=== PATIENT | male | born 1945 | race Caucasian/White ===

== ENCOUNTER 2022-01-09 11:17 | Inpatient (IN) ==
[2022-01-09] MEDS ORDERED: cefTRIAXone 1,000 MG in SODIUM CHLORIDE 0.9% 100 ML IV STA (12:08)
[2022-01-09] MEDS ORDERED: SODIUM CHLORIDE 0.9% 1,000 ML IV STA (12:08)
[2022-01-09] MEDS ORDERED: metroNIDAZOLE INJ 500 MG/100 ML PREMIX IV STA (12:08)
[2022-01-09 13:49] LABS: Basophils % 0.3 % (0.0-0.8); Hematocrit 48.8 VOL% (42.0-52.0); Hemoglobin 16.3 GM/DL (14.0-18.0); Immature Granulocytes % 0.4 %; Immature Granulocytes Absolute 0.06 #; Lymphocytes % 6.7 % (21.2-54.2); Mean Corpuscular HGB Conc 33.4 GM/DL (32-36); Mean Corpuscular Volume 93.8 FL (87-102); Mean Platelet Volume 9.4 FL (9.6-12.0); Monocytes # 1.1 10*3/uL (0.11-0.8); Monocytes % 7.8 % (1.7-12.7); Neutrophils % 84.8 % (38.7-73.9); Platelet Count 176 T/CUMM (130-400); Red Cell Distribution Width 13.4 % (9.3-17.3); White Blood Count 14.3 T/CUMM (4-12)
[2022-01-09 14:09] LABS: Albumin 3.1 G/DL (3.4-5.0); Bilirubin,Total 1.7 MG/DL (0.20-1.00); Calcium 9.1 MG/DL (8.5-10.1); Osmolality,Calculated 272.2 MOS/KG (273-304); Potassium 4.1 MMOL/L (3.5-5.1); Total Protein 7.3 G/DL (6.4-8.2)
[2022-01-09 15:32] LABS: Bilirubin,Urine Moderate mg/dL (Negative); Blood, Urine Trace mg/dL (Negative); Glucose,Urine (UA) Negative (Negative); Ketones,Urine 15 mg/dL (Negative); Nitrite,Urine Positive (Negative); Protein,Urine 100 mg/dL (Negative); Urine Appearance Clear (Clear); Urine Color Dark Yellow (Yellow); Urine Specific Gravity 1.025 (1.001-1.035); Urine pH 5.5 (4.5-8.0)
[2022-01-09 15:35] LABS: Bacteria,Urine Occasional /HPF (Few); Hyaline Casts,Urine 13 /LPF (0-3); Mucus,Urine Few /LPF (Occasional); Squamous Epithelial Cell,Urine Occasional /HPF (0-10)
[2022-01-09] MEDS ORDERED: ONDANSETRON 4 MG/2 ML VIAL IV PRN (15:36)
[2022-01-09] MEDS ORDERED: GLUCAGON 1 MG VIAL IM PRN (15:36)
[2022-01-09] MEDS ORDERED: guaiFENesin/DM ER 600-30 MG TABLET PO PRN (15:36)
[2022-01-09] MEDS ORDERED: MAGNESIUM SULF RIDER 4 GM/100 ML PREMIX IV PRN (15:38)
[2022-01-09] MEDS ORDERED: MAGNESIUM SULF RIDER 2 GM/50 ML PREMIX IV PRN (15:38)
[2022-01-09] MEDS ORDERED: DEXTROSE 10% 250 ML BAG IV PRN (15:52)
[2022-01-09] MEDS ORDERED: HYDROmorphone 1 MG/1 ML SYRINGE IV PRN (15:57)
[2022-01-09] MEDS: SODIUM CHLORIDE 0.9% 1,000 ML IV SCH (16:00)
[2022-01-09] MEDS: ENOXAPARIN 40 MG/0.4 ML SYRINGE SUBCUT SCH (16:57)
[2022-01-09] MEDS: PIPERACILLIN/TAZOBACTAM 3,375 MG in SODIUM CHLORIDE 0.9% 100 ML IV SCH ×2 (16:58→23:25)
[2022-01-09] MEDS: ACETAMINOPHEN 325 MG TABLET PO PRN (20:58)
[2022-01-10] MEDS: SODIUM CHLORIDE 0.9% 1,000 ML IV SCH ×3 (02:05→17:51)
[2022-01-10] MEDS: ACETAMINOPHEN 325 MG TABLET PO PRN ×3 (03:24→18:46)
[2022-01-10 06:06] LABS: Basophils % 0.3 % (0.0-0.8); Hematocrit 47.6 VOL% (42.0-52.0); Hemoglobin 15.8 GM/DL (14.0-18.0); Immature Granulocytes % 0.5 %; Immature Granulocytes Absolute 0.06 #; Lymphocytes % 8.9 % (21.2-54.2); Mean Corpuscular HGB Conc 33.2 GM/DL (32-36); Mean Corpuscular Volume 94.8 FL (87-102); Mean Platelet Volume 9.9 FL (9.6-12.0); Monocytes % 8.3 % (1.7-12.7); Platelet Count 163 T/CUMM (130-400); Red Blood Count 5.02 MC/CUMM (3.8-5.5); Red Cell Distribution Width 13.6 % (9.3-17.3); White Blood Count 11.4 T/CUMM (4-12)
[2022-01-10 06:36] LABS: Albumin 2.8 G/DL (3.4-5.0); Bilirubin,Total 1.3 MG/DL (0.20-1.00); Calcium 8.7 MG/DL (8.5-10.1); Osmolality,Calculated 275.8 MOS/KG (273-304); Potassium 3.8 MMOL/L (3.5-5.1); Total Protein 6.8 G/DL (6.4-8.2)
[2022-01-10] MEDS: PIPERACILLIN/TAZOBACTAM 3,375 MG in SODIUM CHLORIDE 0.9% 100 ML IV SCH ×2 (09:52→16:55)
[2022-01-10] MEDS: ENOXAPARIN 40 MG/0.4 ML SYRINGE SUBCUT SCH (16:56)
[2022-01-11] MEDS: PIPERACILLIN/TAZOBACTAM 3,375 MG in SODIUM CHLORIDE 0.9% 100 ML IV SCH ×3 (00:50→17:19)
[2022-01-11] MEDS: SODIUM CHLORIDE 0.9% 1,000 ML IV SCH ×3 (00:50→23:32)
[2022-01-11] MEDS: ACETAMINOPHEN 325 MG TABLET PO PRN ×2 (04:10→09:20)
[2022-01-11 06:09] LABS: Basophils % 0.2 % (0.0-0.8); Hemoglobin 15.4 GM/DL (14.0-18.0); Immature Granulocytes % 0.6 %; Immature Granulocytes Absolute 0.06 #; Lymphocytes # 0.9 10*3/uL (1.4-4.0); Lymphocytes % 9.7 % (21.2-54.2); Mean Corpuscular HGB Conc 33.5 GM/DL (32-36); Mean Corpuscular Volume 93.7 FL (87-102); Mean Platelet Volume 9.7 FL (9.6-12.0); Monocytes # 0.6 10*3/uL (0.11-0.8); Neutrophils % 83.5 % (38.7-73.9); Platelet Count 156 T/CUMM (130-400); Red Blood Count 4.91 MC/CUMM (3.8-5.5); Red Cell Distribution Width 13.4 % (9.3-17.3); White Blood Count 9.4 T/CUMM (4-12)
[2022-01-11 06:16] LABS: Albumin 2.5 G/DL (3.4-5.0); Bilirubin,Total 0.8 MG/DL (0.20-1.00); Calcium 8.6 MG/DL (8.5-10.1); Osmolality,Calculated 277.7 MOS/KG (273-304); Potassium 3.5 MMOL/L (3.5-5.1); Total Protein 6.4 G/DL (6.4-8.2)
[2022-01-11] MEDS: ENOXAPARIN 40 MG/0.4 ML SYRINGE SUBCUT SCH (17:20)
[2022-01-11] MEDS ORDERED: IBUPROFEN 600 MG TABLET PO PRN (20:07)
[2022-01-11] MEDS: LACTATED RINGERS 1,000 ML IV SCH (23:31)
[2022-01-12] MEDS: PIPERACILLIN/TAZOBACTAM 3,375 MG in SODIUM CHLORIDE 0.9% 100 ML IV SCH ×3 (00:03→18:45)
[2022-01-12 05:38] LABS: Basophils % 0.2 % (0.0-0.8); Hematocrit 47.6 VOL% (42.0-52.0); Hemoglobin 15.9 GM/DL (14.0-18.0); Immature Granulocytes % 0.6 %; Immature Granulocytes Absolute 0.06 #; Lymphocytes # 0.7 10*3/uL (1.4-4.0); Lymphocytes % 6.6 % (21.2-54.2); Mean Corpuscular HGB Conc 33.4 GM/DL (32-36); Mean Corpuscular Volume 94.3 FL (87-102); Mean Platelet Volume 9.7 FL (9.6-12.0); Monocytes # 0.4 10*3/uL (0.11-0.8); Monocytes % 3.3 % (1.7-12.7); Neutrophils % 89.3 % (38.7-73.9); Platelet Count 144 T/CUMM (130-400); Red Blood Count 5.05 MC/CUMM (3.8-5.5); Red Cell Distribution Width 13.7 % (9.3-17.3); White Blood Count 10.5 T/CUMM (4-12)
[2022-01-12 06:12] LABS: Calcium 9.1 MG/DL (8.5-10.1); Osmolality,Calculated 279.7 MOS/KG (273-304); Potassium 3.6 MMOL/L (3.5-5.1)
[2022-01-12] MEDS ORDERED: HYDROCORTISONE 2.5% RECTAL CREAM 30 GM TUBE TOP PRN (08:52)
[2022-01-12] MEDS: ACETAMINOPHEN 325 MG TABLET PO PRN (11:52)
[2022-01-12] MEDS ORDERED: FUROSEMIDE 40 MG/4 ML VIAL IV ONE (12:12)
[2022-01-12 12:19] LABS: Arterial Base Excess iSTAT -3 MMOL/L (-2.5-2.5); Arterial Bicarbonate iSTAT 19.2 MMOL/L (20-26); Arterial O2 Saturation iSTAT 92 % (95-100); Arterial PCO2 iSTAT 27 MM HG (35-48); Arterial PO2 iSTAT 58 MM HG (80-95); Arterial Total CO2 iSTAT 20 MMO/L (23-27); Arterial pH iSTAT 7.456 (7.35-7.45)
[2022-01-12] MEDS ORDERED: DILTIAZEM 25 MG/5 ML VIAL IV ONE ×3 (12:19→13:00)
[2022-01-12 12:38] LABS: Calcium 8.7 MG/DL (8.5-10.1); Osmolality,Calculated 277.8 MOS/KG (273-304); Potassium 3.6 MMOL/L (3.5-5.1)
[2022-01-12] MEDS ORDERED: DIGOXIN 0.5 MG/2 ML AMP IV ONE ×2 (12:38→13:30)
[2022-01-12] MEDS: LACTATED RINGERS 1,000 ML IV SCH ×2 (14:32→15:00)
[2022-01-12] MEDS: DILTIAZEM INJ 100 MG in SODIUM CHLORIDE 0.9% 100 ML IV SCH (14:33)
[2022-01-12] MEDS: ENOXAPARIN 100 MG/ML SYRINGE SUBCUT SCH (17:00)
[2022-01-12] MEDS: AZITHROMYCIN INJ 500 MG in SODIUM CHLORIDE 0.9% 250 ML IV SCH (19:08)
[2022-01-12] MEDS: ACETYLCYSTEINE 600 MG CAPSULE PO SCH (21:00)
[2022-01-13] MEDS: PIPERACILLIN/TAZOBACTAM 3,375 MG in SODIUM CHLORIDE 0.9% 100 ML IV SCH ×3 (03:25→19:21)
[2022-01-13] MEDS: ACETAMINOPHEN 325 MG TABLET PO PRN (03:36)
[2022-01-13 04:21] LABS: Arterial Base Excess iSTAT -3 MMOL/L (-2.5-2.5); Arterial Bicarbonate iSTAT 20.4 MMOL/L (20-26); Arterial O2 Saturation iSTAT 93 % (95-100); Arterial PCO2 iSTAT 30 MM HG (35-48); Arterial PO2 iSTAT 64 MM HG (80-95); Arterial Total CO2 iSTAT 21 MMO/L (23-27); Arterial pH iSTAT 7.444 (7.35-7.45)
[2022-01-13 04:22] LABS: Basophils % 0.4 % (0.0-0.8); Hematocrit 43.7 VOL% (42.0-52.0); Hemoglobin 14.7 GM/DL (14.0-18.0); Immature Granulocytes % 0.6 %; Immature Granulocytes Absolute 0.05 #; Lymphocytes # 0.6 10*3/uL (1.4-4.0); Lymphocytes % 7.1 % (21.2-54.2); Mean Corpuscular HGB Conc 33.6 GM/DL (32-36); Mean Corpuscular Volume 92.6 FL (87-102); Mean Platelet Volume 9.8 FL (9.6-12.0); Monocytes # 0.3 10*3/uL (0.11-0.8); Neutrophils % 87.9 % (38.7-73.9); Platelet Count 169 T/CUMM (130-400); Red Blood Count 4.72 MC/CUMM (3.8-5.5); Red Cell Distribution Width 13.6 % (9.3-17.3); White Blood Count 8.3 T/CUMM (4-12)
[2022-01-13 04:44] LABS: Albumin 2.2 G/DL (3.4-5.0); Bilirubin,Total 0.6 MG/DL (0.20-1.00); Calcium 8.1 MG/DL (8.5-10.1); Potassium 3.4 MMOL/L (3.5-5.1); Total Protein 5.1 G/DL (6.4-8.2)
[2022-01-13] MEDS: DILTIAZEM INJ 100 MG in SODIUM CHLORIDE 0.9% 100 ML IV SCH ×3 (04:57→20:38)
[2022-01-13] MEDS: LACTATED RINGERS 1,000 ML IV SCH ×2 (06:19→15:22)
[2022-01-13] MEDS ORDERED: POTASSIUM CHLORIDE 20 MEQ TABLET PO ONE (07:14)
[2022-01-13] MEDS ORDERED: METOPROLOL SUCCINATE XL 25 MG TABLET PO SCH (09:00)
[2022-01-13] MEDS: ACETYLCYSTEINE 600 MG CAPSULE PO SCH ×2 (09:29→20:34)
[2022-01-13] MEDS: DILTIAZEM CD 240 MG CAPSULE PO SCH (09:30)
[2022-01-13] MEDS: DIGOXIN 0.5 MG/2 ML AMP IV SCH (09:30)
[2022-01-13] MEDS ORDERED: FUROSEMIDE 40 MG/4 ML VIAL IV ONE (10:49)
[2022-01-13] MEDS: POLYETHYLENE GLYCOL POWDER 17 GM PACK PO PRN (12:30)
[2022-01-13] MEDS: ENOXAPARIN 100 MG/ML SYRINGE SUBCUT SCH (19:19)
[2022-01-13] MEDS: DEXAMETHASONE 4 MG/1 ML VIAL IV SCH (19:20)
[2022-01-13] MEDS: AZITHROMYCIN INJ 500 MG in SODIUM CHLORIDE 0.9% 250 ML IV SCH (19:20)
[2022-01-14 04:54] LABS: Basophils % 0.1 % (0.0-0.8); Hematocrit 42.7 VOL% (42.0-52.0); Hemoglobin 14.3 GM/DL (14.0-18.0); Immature Granulocytes % 1.1 %; Immature Granulocytes Absolute 0.09 #; Lymphocytes # 0.5 10*3/uL (1.4-4.0); Lymphocytes % 6.6 % (21.2-54.2); Mean Corpuscular HGB Conc 33.5 GM/DL (32-36); Mean Corpuscular Volume 93.2 FL (87-102); Mean Platelet Volume 10.3 FL (9.6-12.0); Monocytes # 0.2 10*3/uL (0.11-0.8); Monocytes % 2.9 % (1.7-12.7); Neutrophils % 89.3 % (38.7-73.9); Platelet Count 196 T/CUMM (130-400); Red Blood Count 4.58 MC/CUMM (3.8-5.5); Red Cell Distribution Width 13.7 % (9.3-17.3)
[2022-01-14 05:10] LABS: Calcium 8.6 MG/DL (8.5-10.1); Osmolality,Calculated 275.1 MOS/KG (273-304); Potassium 3.5 MMOL/L (3.5-5.1)
[2022-01-14] MEDS: PIPERACILLIN/TAZOBACTAM 3,375 MG in SODIUM CHLORIDE 0.9% 100 ML IV SCH ×3 (05:38→18:17)
[2022-01-14] MEDS: DILTIAZEM INJ 100 MG in SODIUM CHLORIDE 0.9% 100 ML IV SCH ×2 (06:29→12:59)
[2022-01-14] MEDS: ACETYLCYSTEINE 600 MG CAPSULE PO SCH ×2 (08:38→22:03)
[2022-01-14] MEDS: DILTIAZEM CD 240 MG CAPSULE PO SCH (08:38)
[2022-01-14] MEDS: DEXAMETHASONE 4 MG/1 ML VIAL IV SCH (08:42)
[2022-01-14] MEDS: DIGOXIN 0.5 MG/2 ML AMP IV SCH (08:42)
[2022-01-14] MEDS ORDERED: FUROSEMIDE 40 MG/4 ML VIAL IV ONE (09:00)
[2022-01-14] MEDS ORDERED: METOPROLOL SUCCINATE XL 50 MG TABLET PO SCH (09:00)
[2022-01-14] MEDS ORDERED: IBUPROFEN 200 MG TABLET PO PRN (17:11)
[2022-01-14] MEDS: ENOXAPARIN 100 MG/ML SYRINGE SUBCUT SCH (18:16)
[2022-01-14] MEDS: AZITHROMYCIN INJ 500 MG in SODIUM CHLORIDE 0.9% 250 ML IV SCH (18:21)
[2022-01-14] MEDS: ZIPRASIDONE 20 MG/1 ML VIAL IM PRN ×2 (18:39→23:20)
[2022-01-14] MEDS ORDERED: IBUPROFEN 400 MG TABLET PO PRN (19:00)
[2022-01-14] MEDS: METOPROLOL SUCCINATE XL 25 MG TABLET PO SCH (22:04)
[2022-01-15] MEDS ORDERED: OLANZapine 10 MG VIAL IM ONE (03:02)
[2022-01-15] MEDS: NICOTINE 21 MG/24 HR PATCH TRANSDERM PRN ×2 (03:40→20:41)
[2022-01-15] MEDS: PIPERACILLIN/TAZOBACTAM 3,375 MG in SODIUM CHLORIDE 0.9% 100 ML IV SCH ×3 (03:48→18:30)
[2022-01-15 05:02] LABS: Basophils % 0.1 % (0.0-0.8); Hematocrit 46.2 VOL% (42.0-52.0); Hemoglobin 15.7 GM/DL (14.0-18.0); Immature Granulocytes % 0.8 %; Immature Granulocytes Absolute 0.12 #; Lymphocytes # 0.8 10*3/uL (1.4-4.0); Lymphocytes % 5.5 % (21.2-54.2); Mean Corpuscular Volume 91.8 FL (87-102); Mean Platelet Volume 9.8 FL (9.6-12.0); Monocytes # 0.6 10*3/uL (0.11-0.8); Monocytes % 4.1 % (1.7-12.7); Neutrophils % 89.5 % (38.7-73.9); Platelet Count 293 T/CUMM (130-400); Red Blood Count 5.03 MC/CUMM (3.8-5.5); Red Cell Distribution Width 13.5 % (9.3-17.3); White Blood Count 14.3 T/CUMM (4-12)
[2022-01-15 05:16] LABS: Calcium 9.3 MG/DL (8.5-10.1); Osmolality,Calculated 284.8 MOS/KG (273-304); Potassium 3.1 MMOL/L (3.5-5.1)
[2022-01-15] MEDS: POTASSIUM CHLORIDE 20 MEQ TABLET PO SCH ×4 (07:26→20:42)
[2022-01-15] MEDS: ZIPRASIDONE 20 MG/1 ML VIAL IM PRN ×3 (07:27→16:49)
[2022-01-15] MEDS: DIGOXIN 0.5 MG/2 ML AMP IV SCH (08:03)
[2022-01-15] MEDS ORDERED: FUROSEMIDE 40 MG/4 ML VIAL IV ONE (09:00)
[2022-01-15] MEDS ORDERED: DEXAMETHASONE 4 MG/1 ML VIAL IV SCH (09:00)
[2022-01-15] MEDS: ACETYLCYSTEINE 600 MG CAPSULE PO SCH ×2 (09:03→20:43)
[2022-01-15] MEDS: METOPROLOL SUCCINATE XL 25 MG TABLET PO SCH ×2 (09:03→20:43)
[2022-01-15] MEDS: DILTIAZEM CD 240 MG CAPSULE PO SCH (09:03)
[2022-01-15] MEDS: QUEtiapine 100 MG TABLET PO SCH ×2 (09:46→20:46)
[2022-01-15] MEDS: DILTIAZEM INJ 100 MG in SODIUM CHLORIDE 0.9% 100 ML IV SCH ×2 (11:20→23:55)
[2022-01-15] MEDS ORDERED: DILTIAZEM 25 MG/5 ML VIAL IV ONE (11:30)
[2022-01-15] MEDS: ENOXAPARIN 100 MG/ML SYRINGE SUBCUT SCH (16:50)
[2022-01-15] MEDS: AZITHROMYCIN INJ 500 MG in SODIUM CHLORIDE 0.9% 250 ML IV SCH (17:05)
[2022-01-15] MEDS: POLYETHYLENE GLYCOL POWDER 17 GM PACK PO PRN (20:41)
[2022-01-16] MEDS: PIPERACILLIN/TAZOBACTAM 3,375 MG in SODIUM CHLORIDE 0.9% 100 ML IV SCH ×3 (01:25→18:24)
[2022-01-16] MEDS ORDERED: HALOPERIDOL 5 MG/ML AMP IM ONE (02:29)
[2022-01-16 03:54] LABS: Basophils % 0.1 % (0.0-0.8); Hemoglobin 14.5 GM/DL (14.0-18.0); Immature Granulocytes % 0.8 %; Lymphocytes # 0.5 10*3/uL (1.4-4.0); Lymphocytes % 4.3 % (21.2-54.2); Mean Corpuscular HGB Conc 33.7 GM/DL (32-36); Mean Corpuscular Volume 92.7 FL (87-102); Mean Platelet Volume 9.6 FL (9.6-12.0); Monocytes # 0.5 10*3/uL (0.11-0.8); Monocytes % 4.4 % (1.7-12.7); Neutrophils % 90.4 % (38.7-73.9); Platelet Count 335 T/CUMM (130-400); Red Blood Count 4.64 MC/CUMM (3.8-5.5); Red Cell Distribution Width 13.7 % (9.3-17.3); White Blood Count 12.3 T/CUMM (4-12)
[2022-01-16 04:15] LABS: Calcium 8.9 MG/DL (8.5-10.1); Osmolality,Calculated 300.6 MOS/KG (273-304); Potassium 3.3 MMOL/L (3.5-5.1)
[2022-01-16 04:18] LABS: Band Neutrophils 1 % (0-10); Lymphocytes 4 % (20-55); Total Cells Counted 100
[2022-01-16] MEDS ORDERED: DEXTROSE 5% 1,000 ML IV SCH (08:30)
[2022-01-16] MEDS ORDERED: DILTIAZEM CD 300 MG CAPSULE PO SCH (09:00)
[2022-01-16] MEDS: ACETYLCYSTEINE 600 MG CAPSULE PO SCH ×2 (09:07→20:21)
[2022-01-16] MEDS: DIGOXIN 0.5 MG/2 ML AMP IV SCH (09:07)
[2022-01-16] MEDS: METOPROLOL SUCCINATE XL 25 MG TABLET PO SCH ×2 (09:08→20:20)
[2022-01-16] MEDS: QUEtiapine 100 MG TABLET PO SCH ×2 (09:08→20:21)
[2022-01-16] MEDS: chlordiazePOXIDE 10 MG CAPSULE PO SCH ×3 (09:08→20:20)
[2022-01-16] MEDS ORDERED: DILTIAZEM INJ 100 MG in SODIUM CHLORIDE 0.9% 100 ML IV PRN (10:49)
[2022-01-16] MEDS: ZIPRASIDONE 20 MG/1 ML VIAL IM PRN (12:10)
[2022-01-16] MEDS: ENOXAPARIN 100 MG/ML SYRINGE SUBCUT SCH (16:44)
[2022-01-16] MEDS: AZITHROMYCIN INJ 500 MG in SODIUM CHLORIDE 0.9% 250 ML IV SCH (17:30)
[2022-01-16] MEDS: ASCORBIC ACID 500 MG TABLET PO SCH (20:20)
[2022-01-16] MEDS: NICOTINE 21 MG/24 HR PATCH TRANSDERM PRN (20:22)
[2022-01-17] MEDS: PIPERACILLIN/TAZOBACTAM 3,375 MG in SODIUM CHLORIDE 0.9% 100 ML IV SCH ×3 (02:25→18:00)
[2022-01-17 04:35] LABS: Basophils % 0.1 % (0.0-0.8); Eosinophils % 0.4 % (0.00-10.9); Hematocrit 46.5 VOL% (42.0-52.0); Hemoglobin 15.2 GM/DL (14.0-18.0); Immature Granulocytes % 0.6 %; Immature Granulocytes Absolute 0.05 #; Lymphocytes # 1.1 10*3/uL (1.4-4.0); Mean Corpuscular HGB Conc 32.7 GM/DL (32-36); Mean Corpuscular Volume 94.9 FL (87-102); Mean Platelet Volume 10.4 FL (9.6-12.0); Monocytes # 0.6 10*3/uL (0.11-0.8); Monocytes % 7.4 % (1.7-12.7); Neutrophils % 78.5 % (38.7-73.9); Platelet Count 275 T/CUMM (130-400); Red Cell Distribution Width 13.8 % (9.3-17.3); White Blood Count 8.3 T/CUMM (4-12)
[2022-01-17 04:38] LABS: Calcium 8.9 MG/DL (8.5-10.1); Osmolality,Calculated 289.8 MOS/KG (273-304); Potassium 3.9 MMOL/L (3.5-5.1)
[2022-01-17] MEDS: QUEtiapine 100 MG TABLET PO SCH (08:43)
[2022-01-17] MEDS: chlordiazePOXIDE 10 MG CAPSULE PO SCH ×3 (08:43→23:39)
[2022-01-17] MEDS: ASCORBIC ACID 500 MG TABLET PO SCH ×2 (08:43→23:20)
[2022-01-17] MEDS: ACETYLCYSTEINE 600 MG CAPSULE PO SCH ×2 (08:43→23:19)
[2022-01-17] MEDS ORDERED: METOPROLOL SUCCINATE XL 25 MG TABLET PO SCH (09:00)
[2022-01-17] MEDS ORDERED: METOPROLOL SUCCINATE XL 25 MG TABLET PO ONE (09:56)
[2022-01-17] MEDS: THIAMINE 200 MG/2 ML VIAL IV SCH ×3 (12:52→23:38)
[2022-01-17] MEDS ORDERED: ENOXAPARIN 100 MG/ML SYRINGE SUBCUT SCH (13:30)
[2022-01-17] MEDS: AZITHROMYCIN INJ 500 MG in SODIUM CHLORIDE 0.9% 250 ML IV SCH (18:00)
[2022-01-17] MEDS ORDERED: QUEtiapine 25 MG TABLET PO SCH (21:00)
[2022-01-17] MEDS: APIXABAN 5 MG TABLET PO SCH (23:20)
[2022-01-18] MEDS: PIPERACILLIN/TAZOBACTAM 3,375 MG in SODIUM CHLORIDE 0.9% 100 ML IV SCH ×3 (03:57→17:37)
[2022-01-18 04:07] LABS: Basophils % 0.1 % (0.0-0.8); Eosinophils # 0.1 10*3/uL (0.0-0.87); Eosinophils % 0.8 % (0.00-10.9); Hemoglobin 14.3 GM/DL (14.0-18.0); Immature Granulocytes % 1.1 %; Immature Granulocytes Absolute 0.11 #; Lymphocytes # 1.3 10*3/uL (1.4-4.0); Lymphocytes % 13.3 % (21.2-54.2); Mean Corpuscular HGB Conc 31.8 GM/DL (32-36); Mean Corpuscular Volume 97.6 FL (87-102); Mean Platelet Volume 9.4 FL (9.6-12.0); Monocytes # 0.7 10*3/uL (0.11-0.8); Monocytes % 7.5 % (1.7-12.7); Neutrophils % 77.2 % (38.7-73.9); Platelet Count 323 T/CUMM (130-400); Red Blood Count 4.61 MC/CUMM (3.8-5.5); White Blood Count 9.6 T/CUMM (4-12)
[2022-01-18 04:22] LABS: Calcium 8.4 MG/DL (8.5-10.1); Osmolality,Calculated 291.7 MOS/KG (273-304); Potassium 3.8 MMOL/L (3.5-5.1)
[2022-01-18] MEDS: chlordiazePOXIDE 10 MG CAPSULE PO SCH (08:00)
[2022-01-18] MEDS: METOPROLOL SUCCINATE XL 50 MG TABLET PO SCH (08:04)
[2022-01-18] MEDS: ASCORBIC ACID 500 MG TABLET PO SCH ×2 (08:04→20:29)
[2022-01-18] MEDS: ACETYLCYSTEINE 600 MG CAPSULE PO SCH ×2 (08:04→20:29)
[2022-01-18] MEDS: THIAMINE 200 MG/2 ML VIAL IV SCH ×3 (08:05→17:03)
[2022-01-18] MEDS: APIXABAN 5 MG TABLET PO SCH ×2 (08:05→20:29)
[2022-01-18] MEDS ORDERED: chlordiazePOXIDE 10 MG CAPSULE PO PRN (08:49)
[2022-01-18] MEDS: DILTIAZEM CD 120 MG CAPSULE PO SCH (10:55)
[2022-01-18] MEDS ORDERED: LOSARTAN 50 MG TABLET PO SCH (14:00)
[2022-01-18 16:00] VITALS: BP 137/59
[2022-01-18] MEDS: AZITHROMYCIN INJ 500 MG in SODIUM CHLORIDE 0.9% 250 ML IV SCH (17:05)
[2022-01-19] MEDS: PIPERACILLIN/TAZOBACTAM 3,375 MG in SODIUM CHLORIDE 0.9% 100 ML IV SCH ×2 (02:15→11:03)
[2022-01-19 03:25] LABS: Basophils % 0.2 % (0.0-0.8); Eosinophils # 0.2 10*3/uL (0.0-0.87); Eosinophils % 2.7 % (0.00-10.9); Hematocrit 42.1 VOL% (42.0-52.0); Hemoglobin 13.7 GM/DL (14.0-18.0); Immature Granulocytes % 1.7 %; Immature Granulocytes Absolute 0.15 #; Lymphocytes # 1.3 10*3/uL (1.4-4.0); Lymphocytes % 15.2 % (21.2-54.2); Mean Corpuscular HGB Conc 32.5 GM/DL (32-36); Mean Platelet Volume 9.1 FL (9.6-12.0); Monocytes # 0.6 10*3/uL (0.11-0.8); Monocytes % 6.8 % (1.7-12.7); NRBC # 0.12 10*3/uL; Neutrophils % 73.4 % (38.7-73.9); Platelet Count 216 T/CUMM (130-400); Red Blood Count 4.34 MC/CUMM (3.8-5.5); Red Cell Distribution Width 13.9 % (9.3-17.3); White Blood Count 8.7 T/CUMM (4-12)
[2022-01-19 03:47] LABS: Calcium 8.5 MG/DL (8.5-10.1); Osmolality,Calculated 289.8 MOS/KG (273-304)
[2022-01-19] MEDS: LOSARTAN 50 MG TABLET PO SCH (08:23)
[2022-01-19] MEDS: APIXABAN 5 MG TABLET PO SCH ×2 (08:23→21:15)
[2022-01-19] MEDS: DILTIAZEM CD 120 MG CAPSULE PO SCH (08:24)
[2022-01-19] MEDS: ASCORBIC ACID 500 MG TABLET PO SCH ×2 (08:24→21:15)
[2022-01-19] MEDS: METOPROLOL SUCCINATE XL 50 MG TABLET PO SCH (08:25)
[2022-01-19] MEDS ORDERED: TELMISARTAN 40 MG TABLET PO SCH (09:00)
[2022-01-20] MEDS: ASCORBIC ACID 500 MG TABLET PO SCH (08:06)
[2022-01-20] MEDS: DILTIAZEM CD 120 MG CAPSULE PO SCH (08:06)
[2022-01-20] MEDS: APIXABAN 5 MG TABLET PO SCH (08:06)
[2022-01-20] MEDS: LOSARTAN 50 MG TABLET PO SCH (08:06)
[2022-01-20] MEDS: METOPROLOL SUCCINATE XL 50 MG TABLET PO SCH (08:06)
== END 2022-01-20 13:56 | disposition home or self-care (01) | DRG 177 ==
LOC: N.ED 11:17 → N.5E 15:36 → SUATTDRO 15:36 → N.5E 17:20 → N.ICU 01-12 12:19
PROVIDERS: ADMIT Internal Medicine; ATTEND Internal Medicine